=== PATIENT | male | born 1945 | race Caucasian/White ===

== ENCOUNTER → 2019-02-16 | Outpatient (CLI) | payer BC ==
[~2019-02-16] MED LIST: ADULT LOW DOSE81 MG PO; BENICAR; BENICAR HCT 401 EAC1 PO; BLOOD PRESSURE MED; CADUET 10 MG-41 EACH; CARDIO TEA PO; CARDIOSTEROL PO; COREG PO; DOXYCYCLINE HYC50 M2 PO; EZETIMIBE PO; FISHOIL; MULTIVITAMINS PO; NITROGLYCERIN0.4 MG SL; PRILOSEC 20 MG20 MG PO; VITAMIN D1000 UNI1 PO
[2019-02-16 10:05] VITALS: BP 132/74
[2019-02-16 10:24] LABS: ABSOLUTE LYMPHOCYTES 0.3 thou/uL (0.8-5.3); ABSOLUTE MONOCYTES 0.4 thou/uL (0.0-1.2); ABSOLUTE NEUTROPHILS 2.1 thou/uL (1.6-8.1); BASOPHILS 0.4 %; EOSINOPHILS 0.2 %; HEMATOCRIT 34.6 % (42.0-52.0); HEMOGLOBIN 12.4 gm/dL (14.0-18.0); LYMPHOCYTES 11.6 %; MCH 34.5 pg (26.0-34.0); MCHC 35.7 g/dL (28.0-37.0); MCV 96.5 fL (80.0-100.0); MONOCYTES 13.5 %; NUCLEATED RBCS 0 /100WBC; PLATELET COUNT* 144 thou/uL (150-400); POLYS 74.3 %; RBC 3.59 mil/uL (4.50-6.00); RDW-CV 12.7 % (10.5-14.5); WBC 2.8 thou/uL (4.0-11.0)
[2019-02-16 10:41] LABS: ALBUMIN 2.9 g/dL (3.4-5.0); CALCIUM 9.2 mg/dL (8.5-10.1); TOTAL BILIRUBIN 1.1 mg/dL (<0.1-1.0); TOTAL PROTEIN 6.4 g/dL (6.4-8.2)
[2019-02-16 12:23] VITALS: BP 122/74
== END ==
LOC: M.INFUS 10:00
PROVIDERS: Internal Medicine Hematology & Oncology
DX: E86.0 Dehydration (principal); C15.9 Malignant neoplasm of esophagus, unspecified

== ENCOUNTER → 2019-03-08 | Outpatient (CLI) | payer BC | LOC: M.RAD 15:20 | DX: M11.232 Other chondrocalcinosis, left wrist (principal); M25.832 Other specified joint disorders, left wrist ==

== ENCOUNTER → 2019-09-28 | Outpatient (CLI) | payer BC | LOC: M.WC 08:00 | PROVIDERS: ATTEND Emergency Medicine Undersea and Hyperbaric Medicine | DX: L89.322 Pressure ulcer of left buttock, stage 2 (principal); I10 Essential (primary) hypertension; K21.9 Gastro-esophageal reflux disease without esophagitis; M06.9 Rheumatoid arthritis, unspecified; Z85.01 Personal history of malignant neoplasm of esophagus; Z87.891 Personal history of nicotine dependence; Z96.649 Presence of unspecified artificial hip joint ==

== ENCOUNTER → 2019-10-12 | Outpatient (CLI) | payer BC | LOC: M.WC 05:00 | PROVIDERS: ATTEND Emergency Medicine Undersea and Hyperbaric Medicine | DX: L89.322 Pressure ulcer of left buttock, stage 2 (principal); I10 Essential (primary) hypertension; K21.9 Gastro-esophageal reflux disease without esophagitis; M06.9 Rheumatoid arthritis, unspecified; Z87.891 Personal history of nicotine dependence; Z85.01 Personal history of malignant neoplasm of esophagus ==